=== PATIENT | male | born 1975 | race Caucasian/White ===

== ENCOUNTER 2017-10-18 18:00 | Emergency (ER) | payer BC, OTHER ==
[~2017-10-18 18:00] MED LIST: Ondansetron 4 MG/2 ML SDV ONE; fentaNYL 100 MCG/2 ML SDV ONE
[2017-10-18] MEDS ORDERED: Lactated Ringers 1,000 ML IV ONE (18:01)
[2017-10-18] MEDS ORDERED: fentaNYL 100 MCG/2 ML SDV ONE ×4 (18:08→19:40)
[2017-10-18 18:25] LABS: CHLORIDE,CL 99 mmol/L (98-107); SODIUM,NA 138 mmol/L (136-145)
[2017-10-18] MEDS ORDERED: Ondansetron 4 MG/2 ML SDV ONE (18:27)
[2017-10-18] MEDS ORDERED: Acetaminophen/HYDROcodone 325-10 MG Tab PO ONE (19:32)
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
== END 2017-10-18 20:10 | disposition home or self-care (01) ==
LOC: LL.ED 18:00
DX: S22.42XA Multiple fractures of ribs, left side, initial encounter for closed fracture (principal); V86.52XA Driver of snowmobile injured in nontraffic accident, initial encounter; Y92.488 Other paved roadways as the place of occurrence of the external cause
CPT/HCPCS: 36415; 71250; 80053; 82150; 82550; 83605; 83690; 84484; 85025; 93005; 96361; 96374; 96375; 96376; 99285; A9270-GY; G0390; J2405; J3010; J7120